=== PATIENT | female | born 1955 | race Caucasian/White ===

== ENCOUNTER 2016-12-28 11:28 | Emergency (ER) | payer OTHER ==
[2016-12-28] MEDS ORDERED: LIDOCAINE 1% INJ-PF (10 MG/ML) 30 ML SDV INFIL ONE (12:04)
[2016-12-28] MEDS ORDERED: HYDROCODONE/ACETAMINOPHEN 5-325 MG TABLET PO ONE (12:18)
--- NOTE | 2016-12-28 12:50 | ER Document Report ---
ED General - General Chief Complaint: Wrist Injury Stated Complaint: FALL/RIGHT WRIST INJURY Time Seen by Provider: 12/28/16 11:53 Mode of Arrival: Ambulatory Information source: Patient Notes: 61-year-old female presents with a distal radial fracture. Patient notes she fell on outstretched arm was sent to an urgent care where a distal radial fracture was noted. I received images from the urgent care and noted that there was mild displacement with a comminuted fracture. Sent in for reevaluation TRAVEL OUTSIDE OF THE [place] IN LAST 30 DAYS: No - HPI Onset: Just prior to arrival Onset/Duration: Sudden Quality of pain: Sharp Severity: Severe Pain Level: 5 Associated symptoms: Body/muscle aches Exacerbated by: Movement Relieved by: Denies Similar symptoms previously: Yes Recently seen / treated by doctor: Yes - Related Data Allergies/Adverse Reactions: No Known Allergies Allergy (Verified 12/28/16 11:31) Past Medical History - Social History Smoking Status: Current Every Day Smoker Cigarette use (# per day): Yes Chew tobacco use (# tins/day): No Smoking Education Provided: No Family History: Reviewed & Not Pertinent Patient has suicidal ideation: No Patient has homicidal ideation: No - Past Medical History Cardiac Medical History: Reports: Hx Hypertension Denies: Hx Coronary Artery Disease, Hx Heart Attack Pulmonary Medical History: Reports: Hx COPD Denies: Hx Asthma, Hx Bronchitis, Hx Pneumonia Neurological Medical History: Denies: Hx Cerebrovascular Accident, Hx Seizures Renal/ Medical History: Denies: Hx Peritoneal Dialysis GI Medical History: Reports: Hx Gastroesophageal Reflux Disease Musculoskeltal Medical History: Reports Hx Arthritis - B/L HIPS Past Surgical History: Reports: Hx Abdominal Surgery - Gastric sleeve, Hx Appendectomy, Hx Tonsillectomy - Immunizations Hx Diphtheria, Pertussis, Tetanus Vaccination: Yes Review of Systems - Review of Systems Notes: REVIEW OF SYSTEMS: CONSTITUTIONAL : Denies fever, chills, or sweats. Denies recent illness. EENT: Denies eye, ear, throat, or mouth pain or symptoms. Denies nasal or sinus congestion or discharge. Denies throat, tongue, or mouth swelling or difficulty swallowing. CARDIOVASCULAR: Denies chest pain. Denies palpitations or racing or irregular heart beat. Denies ankle edema. RESPIRATORY: Denies cough, cold, or chest congestion. Denies shortness of breath, difficulty breathing, or wheezing. GASTROINTESTINAL: Denies abdominal pain or distention. Denies nausea, vomiting , or diarrhea. Denies blood in vomitus, stools, or per rectum. Denies black, tarry stools. Denies constipation. GENITOURINARY: Denies difficulty urinating, painful urination, burning, frequency, blood in urine, or discharge. FEMALE GENITOURINARY: Denies vaginal bleeding, heavy or abnormal periods, irregular periods. Denies vaginal discharge or odor. MUSCULOSKELETAL: Admits to right wrist pain SKIN: Denies rash, lesions or sores. HEMATOLOGIC : Denies easy bruising or bleeding. LYMPHATIC: Denies swollen, enlarged glands. NEUROLOGICAL: Denies confusion or altered mental status. Denies passing out or loss of consciousness. Denies dizziness or lightheadedness. Denies headache. Denies weakness or paralysis or loss of use of either side. Denies problems with gait or speech. Denies sensory loss, numbness, or tingling. Denies seizures. PSYCHIATRIC: Denies anxiety or stress. Denies depression, suicidal ideation, or homicidal ideation. PHYSICAL EXAMINATION: GENERAL: Well-appearing, well-nourished and in no acute distress. HEAD: Atraumatic, normocephalic. EYES: Pupils equal round and reactive to light, extraocular movements intact, conjunctiva are normal. ENT: Nares patent, oropharynx clear without exudates. Moist mucous membranes. NECK: Normal range of motion, supple without lymphadenopathy LUNGS: Breath sounds clear to auscultation bilaterally and equal. No wheezes rales or rhonchi. HEART: Regular rate and rhythm without murmurs ABDOMEN: Soft, nontender, nondistended abdomen. No guarding, no rebound. No masses appreciated. Female : deferred Musculoskeletal: There is deformity of the right wrist with tenderness limited range of motion secondary to pain NEUROLOGICAL: Cranial nerves grossly intact. Normal speech, normal gait. Normal sensory, motor exams PSYCH: Normal mood, normal affect. SKIN: Warm, Dry, normal turgor, no rashes or lesions noted. ALL OTHER SYSTEMS REVIEWED AND NEGATIVE. Dictation was performed using [employer] recognition software Physical Exam - Vital signs Vitals: Temp Pulse Resp BP Pulse Ox 97.5 F 62 20 146/66 H 100 12/28/16 11:31 12/28/16 11:31 12/28/16 11:31 12/28/16 11:31 12/28/16 11:31 Course - Re-evaluation Re-evalutation: 12/28/16 16:01 A hematoma block was performed of the wrist using 10 cc of lidocaine with complete resolution of pain ring was removed from finger. Patient fracture was slightly reduced, patient placed in splint and will be given follow-up with orthopedics After performing a Medical Screening Examination, I estimate there is LOW risk for INTRACRANIAL HEMORRHAGE, UNSTABLE SPINE FRACTURE, CENTRAL CORD SYNDROME, CAUDA EQUINA, THORACIC AORTIC DISSECTION, PNEUMOTHORAX, PERFORATED BOWEL, RUPTURED ABDOMINAL AORTIC ANEURYSM, ACUTE TENDON RUPTURE, COMPARTMENT SYNDROME, or OPEN FRACTURE, thus I consider the discharge disposition reasonable. Also, there is no evidence or peritonitis, sepsis, or toxicity. I have reevaluated this patient multiple times and no significant life threatening changes are noted. The patient and I have discussed the diagnosis and risks, and we agree with discharging home to follow-up with their primary doctor with the understanding that symptoms and presentations can change. We also discussed returning to the Emergency Department immediately if new or worsening symptoms occur. We have discussed the symptoms which are most concerning (e.g., bloody stool, fever, changing or worsening pain, vomiting) that necessitate immediate return. - Vital Signs Vital signs: Temp Pulse Resp BP Pulse Ox 98.1 F 57 L 16 148/71 H 98 12/28/16 13:23 12/28/16 13:23 12/28/16 13:23 12/28/16 13:23 12/28/16 13:23 - Diagnostic Test Radiology reviewed: Image reviewed, Reports reviewed - communited fracture radius Procedures - Immobilization Right Wrist Time completed: 12:00 Pre-Proc Neuro Vasc Exam: Normal Immobilizer type: Volar splint Performed by: Provider assisted, PCT Post-Proc Neuro Vasc Exam: Normal Alignment checked and good: Yes - Joint Reduction/Fracture Care Right Wrist Time completed: 12:00 Consent obtained: Yes Conscious sedation: Yes Pre-procedure NV exam: Yes Fracture: Closed Post-procedure NV exam: Yes Post-reduction x-ray: Joint reduced Reduction attempts: 1 Complications: No - Additional Procedures hematoma block Time performed: 12:00 - using 10 cc of lido without epi no complication fullreleif Discharge - Discharge Clinical Impression: Radial head fracture, closed Qualifiers: Encounter type: initial encounter Fracture alignment: displaced Laterality: right Qualified Code(s): S52.121A - Displaced fracture of head of right radius, initial encounter for closed fracture Condition: Stable Disposition: HOME, SELF-CARE Instructions: Radial Head Fracture ([facility]) Prescriptions: Oxycodone HCl/Acetaminophen [Percocet 5-325 mg Tablet] 1 - 2 tab PO Q4H PRN #25 tablet PRN Reason: Referrals: WILMA KHAN DO [ACTIVE STAFF] - Follow up in 3-5 days
--- NOTE | 2016-12-28 13:18 | RADIOLOGY REPORT (SQ) ---
EXAM DESCRIPTION: WRIST RIGHT 3 VIEWS COMPLETED DATE/TIME: 12/28/2016 1:08 pm REASON FOR STUDY: post reduction COMPARISON: None. NUMBER OF VIEWS: Three views. TECHNIQUE: AP, lateral, and oblique radiographic images acquired of the right wrist. LIMITATIONS: None. FINDINGS: MINERALIZATION: Normal. BONES: Comminuted impacted fracture of the distal radius. SOFT TISSUES: No soft tissue swelling. No foreign body. OTHER: No other significant finding. IMPRESSION: COMMINUTED IMPACTED FRACTURE OF THE DISTAL RADIUS. TECHNICAL DOCUMENTATION: JOB ID: [id number] [employer]- All Rights Reserved
[2016-12-28 13:26] VITALS: BP 148/71
== END 2016-12-28 13:28 | disposition home or self-care (01) ==
LOC: ER 11:28
PROC: 0PSHXZZ Reposition Right Radius, External Approach (ICD-10-PCS; principal; 2016-12-28)
DX: S52.121A Displaced fracture of head of right radius, initial encounter for closed fracture (principal); M79.1 Myalgia; W19.XXXA Unspecified fall, initial encounter; F17.210 Nicotine dependence, cigarettes, uncomplicated; I10 Essential (primary) hypertension
CPT/HCPCS: 99283; 73110; 24655; J3490

== ENCOUNTER 2017-01-07 11:34 | Day surgery (SDC) | payer OTHER ==
[2017-01-05 12:11] LABS: ABSOLUTE BASOPHILS # (AUTO) 0.1 10^3/uL (0.0-0.2); ABSOLUTE EOSINOPHILS # (AUTO) 0.2 10^3/uL (0.0-0.6); ABSOLUTE LYMPHOCYTES (AUTO) 2.2 10^3/uL (0.5-4.7); ABSOLUTE MONOCYTES (AUTO) 0.7 10^3/uL (0.1-1.4); ABSOLUTE NEUT (AUTO) 5.8 10^3/uL (1.7-8.2); BASOPHILS % (AUTO) 0.8 % (0-2); EOSINOPHILS % (AUTO) 1.8 % (0-6); HEMATOCRIT 39.7 % (36.0-47.0); HEMOGLOBIN 12.7 g/dL (12.0-15.5); HGB HCT DIFFERENCE -1.6; LYMPHOCYTES % (AUTO) 24.9 % (13-45); MEAN CORPUSCULAR HEMOGLOBIN 28.7 pg (27.0-33.4); MEAN CORPUSCULAR HGB CONC 32.1 g/dL (32.0-36.0); MEAN CORPUSCULAR VOLUME 90 fl (80-97); RED BLOOD COUNT 4.43 10^6/uL (3.72-5.28); RED CELL DISTRIBUTION WIDTH 14.7 % (11.5-14.0); SEGMENTED NEUTROPHILS % (AUTO) 64.5 % (42-78)
[2017-01-05 12:31] LABS: ANION GAP 11 (5-19); BLOOD UREA NITROGEN 10 mg/dL (7-20); CALCIUM 9.1 mg/dL (8.4-10.2); CARBON DIOXIDE 24 mmol/L (22-30); CHLORIDE 106 mmol/L (98-107); GLUCOSE 78 mg/dL (75-110); POTASSIUM 4.2 mmol/L (3.6-5.0)
[2017-01-05 12:41] LABS: APPEARANCE,URINE SLIGHTLY-CLOUDY; BILIRUBIN,URINE NEGATIVE (NEGATIVE); GLUCOSE, URINE NEGATIVE (NEGATIVE); KETONES,URINE TRACE mg/dL (NEGATIVE); LEUKOCYTE ESTERASE,URINE NEGATIVE (NEGATIVE); NITRITE,URINE NEGATIVE (NEGATIVE); PROTEIN,URINE NEGATIVE (NEGATIVE); URIC ACID CRYSTALS,URINE MODERATE /HPF; URINE SPECIFIC GRAVITY 1.024; UROBILINOGEN,URINE NEGATIVE mg/dL (<2.0)
--- NOTE | 2017-01-05 13:14 | RADIOLOGY REPORT (SQ) ---
EXAM DESCRIPTION: CHEST PA/LATERAL COMPLETED DATE/TIME: 01/05/2017 11:44 am REASON FOR STUDY: PRE OP COMPARISON: 03/30/2015 EXAM PARAMETERS: NUMBER OF VIEWS: two views TECHNIQUE: Digital Frontal and Lateral radiographic views of the chest acquired. RADIATION DOSE: NA LIMITATIONS: none FINDINGS: LUNGS AND PLEURA: No opacities, masses or pneumothorax. No pleural effusion. MEDIASTINUM AND HILAR STRUCTURES: No masses or contour abnormalities. HEART AND VASCULAR STRUCTURES: Heart normal size. No evidence for failure. BONES: No acute findings. HARDWARE: None in the chest. OTHER: No other significant finding. IMPRESSION: NO SIGNIFICANT RADIOGRAPHIC FINDING IN THE CHEST. TECHNICAL DOCUMENTATION: JOB ID: [id number] [employer]- All Rights Reserved
--- NOTE | 2017-01-05 17:04 | EKG REPORT ---
SEVERITY:- NORMAL ECG - SINUS RHYTHM : Confirmed by: Chhaya Hlolis MD 05-Jan-2017 17:03:14
[~2017-01-07 11:34] MED LIST: LACTATED RINGERS 1000 ML IV PRN; LIDOCAINE 0.5% INJ-PF (5 MG/ML) 50 ML SDV SUBCUT PRN
[2017-01-07] MEDS ORDERED: CEFAZOLIN 2 GM/D5W RTU 2 GM/50 ML RTUPB IV ONE (11:42)
[2017-01-07] MEDS ORDERED: ONDANSETRON HCL INJ/PF 4 MG/2 ML SDV ONE (11:49)
[2017-01-07] MEDS ORDERED: GLYCOPYRROLATE INJ 0.4 MG/2 ML VIAL ONE (11:49)
[2017-01-07] MEDS ORDERED: DEXAMETHASONE SOD PHOSPHATE INJ 4 MG/1 ML VIAL ONE (11:49)
[2017-01-07] MEDS ORDERED: BUPIVACAINE HCL 0.5 % INJ/PF 30 ML SDV ONE (11:49)
[2017-01-07] MEDS ORDERED: METOCLOPRAMIDE HCL INJ/PF 10 MG/2 ML SDV ONE (11:49)
[2017-01-07] MEDS ORDERED: LIDOCAINE 2% INJ-PF (20 MG/ML) 10 ML AMPUL ONE (11:49)
[2017-01-07] MEDS ORDERED: ALBUTEROL SULFATE 0.083% NEB 2.5 MG/3 ML AMPUL NEB ONE (12:06)
[2017-01-07] MEDS ORDERED: FENTANYL CITRATE INJ/PF 250 MCG/5 ML AMPULE ONE (12:27)
[2017-01-07] MEDS ORDERED: MIDAZOLAM 2 MG/2 ML INJ ONE (12:27)
[2017-01-07] MEDS ORDERED: IBUPROFEN INJ 800 MG/8 ML VIAL IV ONE (12:28)
[2017-01-07] MEDS ORDERED: MORPHINE SULFATE 10 MG/ML INJ ONE (12:28)
[2017-01-07] MEDS ORDERED: PROPOFOL INJ 200 MG/20 ML VIAL IV ONE (12:28)
[2017-01-07] MEDS ORDERED: OXYCODONE-ACETAMINOPHEN 5-325 MG TABLET PO PRN ×3 (13:45→15:00)
[2017-01-07] MEDS ORDERED: DIPHENHYDRAMINE HCL 50 MG/ML VIAL IV PRN (13:45)
[2017-01-07] MEDS ORDERED: PROMETHAZINE HCL INJ 25 MG/1 ML VIAL IV PRN ×2 (13:45)
[2017-01-07] MEDS ORDERED: MORPHINE SULFATE 10 MG/ML INJ IV PRN (13:45)
[2017-01-07] MEDS ORDERED: FENTANYL CITRATE INJ/PF 100 MCG/2 ML AMPUL IV PRN ×3 (13:45)
[2017-01-07] MEDS ORDERED: MEPERIDINE HCL/PF INJ 25 MG/1 ML DISP.SYRIN IV PRN (13:45)
[2017-01-07] MEDS ORDERED: HYDROMORPHONE HCL INJ/PF 2 MG/ML AMPULE IV PRN (15:00)
[2017-01-07] MEDS ORDERED: ONDANSETRON HCL INJ/PF 4 MG/2 ML SDV IV PRN (15:00)
--- NOTE | 2017-01-07 15:03 | PDOC DISCHARGE SUMMARY ---
Discharge Summary (SDC) - Discharge Final Diagnosis: Right distal radius fracture Date of Surgery: 01/07/17 Discharge Date: 01/07/17 Condition: Good Treatment or Instructions: Schedule Follow Up w/ Dr. Luke Clemens @ [facility] for Surgery to be seen in 10-14 days or as scheduled [place]: [place]: [place]: Keep splint clean/dry/intact. Ice and elevate May begin finger range of motion attempting to make full fist. Stool softener of choice when on pain medication. Prescriptions: Oxycodone HCl/Acetaminophen [Percocet 5-325 mg Tablet] 1 - 2 tab PO ASDIR PRN # 50 tablet PRN Reason: Discharge Diet: As Tolerated Respiratory Treatments at Home: Deep Breathing/Coughing, Incentive Spirometer Discharge Activity: No Lifting Over 10 Pounds, No Lifting/Push/Pulling Report the Following to Your Physician Immediately: Fever over 101 Degrees, Unusual Bleeding, Redness, Swelling, Warmth, Increased Soreness, Drainage-Foul Smelling, Numbness, Tingling Sensation
--- NOTE | 2017-01-07 15:05 | RADIOLOGY REPORT (SQ) ---
EXAM DESCRIPTION: NO CHG FLUORO COMPLETE DATE/TIME: 01/07/2017 2:56 pm REASON FOR STUDY: ORIF RIGHT DISTAL RADIUS S52.501A UNSP FRACTURE OF THE LOWER END OF RIGHT RADIUS, INI FINDINGS: Please see combined report for performance of procedure and radiologic supervision and int erpretation. IMPRESSION: Please see combined report for performance of procedure and radiologic supervision and i nterpretation.
--- NOTE | 2017-01-07 15:05 | RADIOLOGY REPORT (SQ) ---
EXAM DESCRIPTION: WRIST RIGHT 2 VIEWS COMPLETED DATE/TIME: 01/07/2017 2:56 pm REASON FOR STUDY: ORIF RIGHT DISTAL RADIUS S52.501A UNSP FRACTURE OF THE LOWER END OF RIGHT RADIUS, INI COMPARISON: 12/28/2016 FLUOROSCOPY TIME: 1 minutes 29 seconds 23 images saved to PACS. TECHNIQUE: Intra-operative images acquired during surgical procedure to evaluate progress. NUMBER OF IMAGES: 23 imaged LIMITATIONS: None. FINDINGS: Fluoroscopic images were obtained during internal fixation of the previously described com minuted fracture of the distal radius. Orthopedic hardware is identified. IMPRESSION: IMAGE(S) OBTAINED DURING PROCEDURE. COMMENT: Quality ID [id number]: Final reports for procedures using fluoroscopy that document radiation exp osure indices, or exposure time and number of fluorographic images (if radiation exposure indices are not available) Please consult full operative report of the attending physician for description of the procedure. TECHNICAL DOCUMENTATION: JOB ID: [id number] [employer]- All Rights Reserved
--- NOTE | 2017-01-07 15:14 | Operative Report ---
Operative Report DATE OF SURGERY: 01/07/17 PREOPERATIVE DIAGNOSIS: Right distal radius fracture POSTOPERATIVE DIAGNOSIS: > 3 part intra-articular distal radius fracture. Status post laceration left wrist with chronic scar. Median nerve adhesions OPERATION: 1. Open reduction internal fixation > three-part intra-articular distal radius fracture. 2. Median nerve neuro lysis. 3. Revision scar ANESTHESIA: GA COMPLICATIONS: None ESTIMATED BLOOD LOSS: Minimal PROCEDURE: Indication for above procedure: Pleasant 51-year-old female who sustained a fall onto her outstretched right wrist. She was seen at the emergency room where x-rays demonstrated comminuted intra-articular distal radius fracture. She subsequently followed up with displacement my office which will be discussed treatment options given the intra -articular nature of the patient's fracture the joint decision was made to proceed with operative intervention. Risks and benefits were explained the patient including significant risk given patient's previous wrist injury. Patient verbalized understanding of these risks and consented for the procedure. Procedure In Detail: Patient was seen and evaluated in the preoperative holding area. The RIGHT upper extremity was initialized and marked. Patient received 2g of Ancef IV for bacterial prophylaxis. Patient was taken back to the operative room where transferred to the operative table and placed under general anesthesia. Once they were adequately anesthetized and a nonsterile tourniquet was placed on his upper extremity. A surgical team debriefing was performed ensuring all instrumentation was available, the surgical procedure was discussed with possible concerns reviewed. The upper extremity was prepped with chlorhexidine and alcohol and draped in a sterile fashion. A timeout was done identifying correct patient, procedure and extremity everyone in attendance agree with this and verbalized no concerns.The extremity was exsanguinated the tourniquet was inflated to 250 mmHg. A longitudinal skin incision was made via patient's previous surgical incision which was slightly ulnar to the standard volar Panda approach but given the possible skin bridge I felt it was necessary to proceed with usage of this previous incision. The previous scar was excised. Blunt dissection was performed through the soft tissues and the palmar cutaneous branch of the median nerve was identified. Identified the median nerve there was significant adhesions along the median nerve proximally and distally at a level just proximal to the wrist crease. Neuro lysis was performed proximally and distally until the median nerve was free of any remaining scar. I then proceeded with standard Panda approach by identifying the FCR tendon sheath was opened and retracted in a ulnar direction. FPL was then carefully swept from the lower aspect of the pronator quadratus. The pronator quadratus was incised and elevated with underlying periosteum to allow for radial repair. The fracture was then identified. With a [place] elevator the fracture fragments including the ulnar lunate and radial styloid were disengaged and then anatomically reduced along the cortical surface under direct visualization. A 0.45 K wire was then utilized maintaining reduction of the fragment. I then proceeded with placement of the plate. A standard volar Acumed 3 hole plate was pinned into position. C-arm fluoroscopy was obtained confirming appropriate placement. Given the nature of the fracture and reduction I proceeded with fixation of the plate proximally on the oblong hole with a bicortical 3.5 millimeter screw. I then readjusted the plate appropriately to cover the volar cortex and provide buttress effect to the volar ulnar corner. This was confirmed on C-arm fluoroscopy AP and lateral projections demonstrate appropriate height of the plate and position. The distal screw holes were then drilled drilling to but not through the far cortex the appropriate sized locking screws were placed. I then ensured no encroachment of the articular surface on 20 lateral and regular lateral views. I then completed fixation distally with my 2 radial styloid screws. Fixation was continued and completed proximally with 2 additional bicortical 3.5 millimeter screws. Given the nature and instability of the volar ulnar corner fragment utilizing a 0.045 K wire I drilled into K wire holes in the plate being 0.45 K wire was measured and appropriately cut and then placed into the 2 adjacent holes acting as a pin plate type fixation. Final C arm fluoroscopy was then obtained which demonstrated methodist of the articular surface, volar tilt, radial inclination and height. The wound was then irrigated with normal saline. The wound was copiously irrigated with normal saline. There was no evidence of DRUJ instability on examination, Negative Marshall's test, No crepitus with range of motion at the radiocarpal joint or DRUJ. I then closed the pronator quadratus with interrupted 3-0 Vicryl suture is able to provide coverage over my K wire. Subcutaneous tissues were closed with running 3-0 nylon suture. The skin was closed with a running subcuticular 4-0 Monocryl suture which was reinforced with Dermabond and Steri-Strips. 20 mL of 0.5% Marcaine were injected for postoperative pain control. The tourniquet was then deflated. Was dressed with sterile 4 x 4's and patient was placed in a well-padded volar splint with bias wrap. Sponge counts, instrument counts and needle counts were correct. There was no intraoperative complications patient tolerated procedure well stable to PACU. Postoperative plan: Patient will be switched to a removal brace at her first postoperative followup visit and begin range of motion. Patient is encouraged to start vitamin C 500 mg daily for 51 days. Will obtain radiographs at followup of the wrist.
[2017-01-07 17:25] VITALS: BP 130/64
== END 2017-01-07 17:40 | disposition home or self-care (01) ==
LOC: OROUT 11:34
PROVIDERS: ATTEND Orthopaedic Surgery
PROC: 0PSH04Z Reposition Right Radius with Internal Fixation Device, Open Approach (ICD-10-PCS; principal; 2017-01-07 12:30)
DX: S52.501A Unspecified fracture of the lower end of right radius, initial encounter for closed fracture (principal); W19.XXXA Unspecified fall, initial encounter; M25.531 Pain in right wrist; F17.210 Nicotine dependence, cigarettes, uncomplicated; I10 Essential (primary) hypertension; K21.9 Gastro-esophageal reflux disease without esophagitis; F41.9 Anxiety disorder, unspecified; Z79.899 Other long term (current) drug therapy
CPT/HCPCS: 93005; 36415; 85025; 80048; 81001; 71020; 73100; 93010; 25609; C1713 ×3; C1769; J2250; J1100; J3010; J2765; J2270; J2405; J2704; J3490; J0690; J1741; 01830

== ENCOUNTER 2017-01-28 16:26 | Emergency (ER) | payer OTHER ==
--- NOTE | 2017-01-28 17:06 | ER Document Report ---
ED Medical Screen (RME) - General Chief Complaint: Leg Pain Stated Complaint: POSSIBLE BLOOD CLOT Time Seen by Provider: 01/28/17 17:03 Mode of Arrival: Wheelchair Information source: Patient TRAVEL OUTSIDE OF THE [place] IN LAST 30 DAYS: No - HPI Patient complains to provider of: L leg pain and swelling with erythema Onset: Other - pt with recent orthopedic surgery per Dr. Isaac (plate in R FA ) with pain, sewlling, and erythema to L upper leg over the past 2-3 days. Seen in office today and setn here for evaluation of possible DVT - Related Data Allergies/Adverse Reactions: No Known Allergies Allergy (Verified 01/05/17 09:58) Past Medical History - Past Medical History Cardiac Medical History: Reports: Hx Hypertension Denies: Hx Coronary Artery Disease, Hx Heart Attack Pulmonary Medical History: Denies: Hx Asthma, Hx Bronchitis, Hx COPD, Hx Pneumonia Neurological Medical History: Denies: Hx Cerebrovascular Accident, Hx Seizures Renal/ Medical History: Denies: Hx Peritoneal Dialysis GI Medical History: Reports: Hx Gastroesophageal Reflux Disease Musculoskeltal Medical History: Denies Hx Arthritis Past Surgical History: Reports: Hx Abdominal Surgery - Gastric sleeve, Hx Appendectomy, Hx Tonsillectomy - Immunizations Hx Diphtheria, Pertussis, Tetanus Vaccination: Yes - UNSURE WHEN Physical Exam - Vital signs Vitals: Temp Pulse Resp BP Pulse Ox 98.8 F 87 16 135/76 H 98 01/28/17 16:52 01/28/17 16:52 01/28/17 16:52 01/28/17 16:52 01/28/17 16:52 Course - Vital Signs Vital signs: Temp Pulse Resp BP Pulse Ox 98.8 F 87 16 135/76 H 98 01/28/17 16:52 01/28/17 16:52 01/28/17 16:52 01/28/17 16:52 01/28/17 16:52
[2017-01-28 17:30] LABS: ABSOLUTE BASOPHILS # (AUTO) 0.1 10^3/uL (0.0-0.2); ABSOLUTE EOSINOPHILS # (AUTO) 0.1 10^3/uL (0.0-0.6); ABSOLUTE LYMPHOCYTES (AUTO) 2.5 10^3/uL (0.5-4.7); ABSOLUTE MONOCYTES (AUTO) 1.1 10^3/uL (0.1-1.4); ABSOLUTE NEUT (AUTO) 6.5 10^3/uL (1.7-8.2); BASOPHILS % (AUTO) 0.7 % (0-2); EOSINOPHILS % (AUTO) 1.2 % (0-6); HEMATOCRIT 37.8 % (36.0-47.0); HEMOGLOBIN 12.2 g/dL (12.0-15.5); HGB HCT DIFFERENCE -1.2; LYMPHOCYTES % (AUTO) 24.5 % (13-45); MEAN CORPUSCULAR HEMOGLOBIN 28.1 pg (27.0-33.4); MEAN CORPUSCULAR HGB CONC 32.2 g/dL (32.0-36.0); MEAN CORPUSCULAR VOLUME 87 fl (80-97); MONOCYTES % (AUTO) 10.5 % (3-13); RED BLOOD COUNT 4.34 10^6/uL (3.72-5.28); RED CELL DISTRIBUTION WIDTH 15.4 % (11.5-14.0); SEGMENTED NEUTROPHILS % (AUTO) 63.1 % (42-78); WHITE BLOOD COUNT 10.3 10^3/uL (4.0-10.5)
[2017-01-28 17:53] LABS: ALANINE AMINOTRANSFERASE 21 U/L (9-52); ALBUMIN 3.7 g/dL (3.5-5.0); ALKALINE PHOSPHATASE 106 U/L (38-126); ANION GAP 9 (5-19); ASPARTATE AMINO TRANSFERASE 21 U/L (14-36); BILIRUBIN,DIRECT 0.4 mg/dL (0.0-0.4); BILIRUBIN,TOTAL 0.8 mg/dL (0.2-1.3); BLOOD UREA NITROGEN 10 mg/dL (7-20); CALCIUM 9.2 mg/dL (8.4-10.2); CARBON DIOXIDE 23 mmol/L (22-30); CHLORIDE 106 mmol/L (98-107); CREATININE RESULT 0.65 mg/dL (0.52-1.25); GLUCOSE 90 mg/dL (75-110); POTASSIUM 4.2 mmol/L (3.6-5.0); SODIUM 137.9 mmol/L (137-145); TOTAL PROTEIN 6.4 g/dL (6.3-8.2)
--- NOTE | 2017-01-28 18:36 | ER Document Report ---
ED Extremity Problem, Lower - General Mode of Arrival: Wheelchair TRAVEL OUTSIDE OF THE [place] IN LAST 30 DAYS: No <ASA HERNANDEZ - Last Filed: 01/28/17 19:48> <LORENZO ESPINOSA - Last Filed: 01/28/17 20:20> - General Chief Complaint: Leg Pain Stated Complaint: LEG PAIN Time Seen by Provider: 01/28/17 17:03 Notes: Patient is a 61 year old female who presents to the ED with complaints of left leg swelling and redness with onset 1 week ago. Patient states it started in her lower leg behind her knee and has moved up into her groin area. Patient denies any fever. Patient had a DVT several years ago and recently had orthopedic surgery on her right arm. No other concerns or complaints at this time. (ASA HERNANDEZ) - Related Data Allergies/Adverse Reactions: No Known Allergies Allergy (Verified 01/05/17 09:58) Past Medical History - General Information source: Patient - Social History Smoking Status: Current Every Day Smoker Chew tobacco use (# tins/day): No Frequency of alcohol use: Occasional Drug Abuse: None Family History: Reviewed & Not Pertinent Patient has suicidal ideation: No Patient has homicidal ideation: No - Past Medical History Cardiac Medical History: Reports: Hx Hypertension Denies: Hx Coronary Artery Disease, Hx Heart Attack Pulmonary Medical History: Denies: Hx Asthma, Hx Bronchitis, Hx COPD, Hx Pneumonia Neurological Medical History: Denies: Hx Cerebrovascular Accident, Hx Seizures Renal/ Medical History: Denies: Hx Peritoneal Dialysis GI Medical History: Reports: Hx Gastroesophageal Reflux Disease Musculoskeltal Medical History: Denies Hx Arthritis Past Surgical History: Reports: Hx Abdominal Surgery - Gastric sleeve, Hx Appendectomy, Hx Orthopedic Surgery, Hx Tonsillectomy - Immunizations Hx Diphtheria, Pertussis, Tetanus Vaccination: Yes - UNSURE WHEN <ASA HERNANDEZ - Last Filed: 01/28/17 19:48> Review of Systems - Review of Systems Constitutional: No symptoms reported. denies: Fever EENT: No symptoms reported Cardiovascular: No symptoms reported Respiratory: No symptoms reported Gastrointestinal: No symptoms reported Genitourinary: No symptoms reported Female Genitourinary: No symptoms reported Musculoskeletal: See HPI, Other - swelling and redness to left leg Skin: No symptoms reported Hematologic/Lymphatic: No symptoms reported Neurological/Psychological: No symptoms reported <ASA HERNANDEZ - Last Filed: 01/28/17 19:48> Physical Exam <ASA HERNANDEZ - Last Filed: 01/28/17 19:48> <LORENZO ESPINOSA - Last Filed: 01/28/17 20:20> - Vital signs Vitals: Temp Pulse Resp BP Pulse Ox 98.8 F 87 16 135/76 H 98 01/28/17 16:52 01/28/17 16:52 01/28/17 16:52 01/28/17 16:52 01/28/17 16:52 - Notes Notes: GENERAL: Alert, interacts well. No acute distress. HEAD: Normocephalic, atraumatic. EYES: Pupils equal, round, and reactive to light. Extraocular movements intact. ENT: Oral mucosa moist, tongue midline. NECK: Full range of motion. Supple. Trachea midline. LUNGS: Clear to auscultation bilaterally, no wheezes, rales, or rhonchi. No respiratory distress. HEART: Regular rate and rhythm. No murmurs, gallops, or rubs. EXTREMITIES: Moves all 4 extremities spontaneously. No edema, radial and dorsalis pedis pulses 2/4 bilaterally. No cyanosis. No swelling to lower left leg. Medial aspect of left thigh has swelling and erythema starting at knee streaking up into the groin, no fluctuance, tender to palpation. Cording of superficial vein medially at the level of the left knee. NEUROLOGICAL: Alert and oriented x3. Normal speech. PSYCH: Normal affect, normal mood. (ASA HERNANDEZ) Course - Laboratory Result Diagrams: 01/28/17 17:05 01/28/17 17:05 <ASA HERNANDEZ - Last Filed: 01/28/17 19:48> - Laboratory Result Diagrams: 01/28/17 17:05 01/28/17 17:05 <LORENZO ESPINOSA - Last Filed: 01/28/17 20:20> - Re-evaluation Re-evalutation: 01/28/17 20:20 CBC unremarkable, CMP unremarkable, venous Doppler study shows superficial phlebitis of the saphenous vein, it is very close to the saphenofemoral junction , discussed with Dr. Dwyer who recommends starting aspirin and repeating the ultrasound in 1 week. (LORENZO ESPINOSA) - Vital Signs Vital signs: Temp Pulse Resp BP Pulse Ox 98.8 F 74 14 152/72 H 97 01/28/17 16:52 01/28/17 19:24 01/28/17 19:24 01/28/17 19:24 01/28/17 19:24 - Laboratory Laboratory results interpreted by me: 01/28/17 17:05 RDW 15.4 H Discharge <ASA HERNANDEZ - Last Filed: 01/28/17 19:48> <LORENZO ESPINOSA - Last Filed: 01/28/17 20:20> - Discharge Clinical Impression: Superficial phlebitis of left leg Condition: Stable Disposition: HOME, SELF-CARE Additional Instructions: Please have the ultrasound of your left leg repeated in 1 week. This will make sure that the swelling has not turned into a DVT. Today there is no evidence of DVT. Please take a daily enteric-coated aspirin. Please take 325 mg every day until your ultrasound is completed again. Return for fevers, worsening pain or swelling. A heating pad or warm moist compress could help to decrease the pain. Forms: Follow-Up Outpatient Testing Scribe Attestation: 01/28/17 20:20 I personally performed the services described in the documentation, reviewed and edited the documentation which was dictated to the scribe in my presence, and it accurately records my words and actions. (LORENZO ESPINOSA) Scribe Documentation - Scribe Written by Sushila:: sushila Candelario, 01/28/2017, 1906 acting as scribe for :: Shawna <ASA HERNANDEZ - Last Filed: 01/28/17 19:48>
[2017-01-28 19:25] VITALS: BP 152/72
--- NOTE | 2017-01-30 12:47 | XCELERA REPORT ---
[address] [address] Lower Extremity Venous Evaluation Name: SALINA MCCURDY Age: 61 yrs Gender: Female : 1955 Patient Status: Emergency Patient Location: ER Study Date: 01/28/2017 05:35 PM Procedure: Color flow and duplex imaging of the veins of the left lower extremity as well as the right Common Femoral vein. Reason For Study: L leg pain, swelling, erythema Ordering Physician: JLUIS MERRITT Performed By: Elsa Mejia Right Sided Venous Evaluation The right common femoral vein is fully compressible. Spontaneous and phasic flow is present in the right common femoral vein. Left Sided Venous Evaluation Abnormal vessel filling , lack of compression and Colour flow, enlarged Greater Saphenous vein, from knee, almost to the Sapheno Femoral junction. Otherwise normal deep and superficial veins down to the infrageniculate veins. Critical Findings Discussed with Dr Matos. Recommend repeat study to evaluate for possible future extension. Daily Aspirin, risk reduction may be beneficial. Interpretation Summary No duplex evidence of DVT or obstruction in the left lower extremity nor in the right Common Femoral vein. Extensive Superficial phlebitis almost to the Sapheno Femoral junction. On the left side. : JLUIS MERRITT > Neville Dwyer
== END 2017-01-28 19:26 | disposition home or self-care (01) ==
LOC: ER 16:26
DX: I80.02 Phlebitis and thrombophlebitis of superficial vessels of left lower extremity (principal); M79.605 Pain in left leg; F17.200 Nicotine dependence, unspecified, uncomplicated; I10 Essential (primary) hypertension; Z86.718 Personal history of other venous thrombosis and embolism
CPT/HCPCS: 36415; 80053; 85025; 93971; 99284

== ENCOUNTER 2017-04-08 10:47 | Day surgery (SDC) | payer OTHER ==
[2017-04-04 12:33] LABS: ABSOLUTE BASOPHILS # (AUTO) 0.1 10^3/uL (0.0-0.2); ABSOLUTE EOSINOPHILS # (AUTO) 0.2 10^3/uL (0.0-0.6); ABSOLUTE LYMPHOCYTES (AUTO) 2.6 10^3/uL (0.5-4.7); ABSOLUTE MONOCYTES (AUTO) 0.7 10^3/uL (0.1-1.4); ABSOLUTE NEUT (AUTO) 4.6 10^3/uL (1.7-8.2); BASOPHILS % (AUTO) 1.2 % (0-2); EOSINOPHILS % (AUTO) 2.1 % (0-6); HEMATOCRIT 39.2 % (36.0-47.0); HEMOGLOBIN 13.1 g/dL (12.0-15.5); HGB HCT DIFFERENCE 0.1; MEAN CORPUSCULAR HEMOGLOBIN 28.2 pg (27.0-33.4); MEAN CORPUSCULAR HGB CONC 33.5 g/dL (32.0-36.0); MEAN CORPUSCULAR VOLUME 84 fl (80-97); MONOCYTES % (AUTO) 8.4 % (3-13); RED BLOOD COUNT 4.66 10^6/uL (3.72-5.28); SEGMENTED NEUTROPHILS % (AUTO) 56.3 % (42-78); WHITE BLOOD COUNT 8.2 10^3/uL (4.0-10.5)
[2017-04-04 12:43] LABS: APPEARANCE,URINE SLIGHTLY-CLOUDY; BILIRUBIN,URINE NEGATIVE (NEGATIVE); GLUCOSE, URINE NEGATIVE (NEGATIVE); KETONES,URINE NEGATIVE (NEGATIVE); LEUKOCYTE ESTERASE,URINE NEGATIVE (NEGATIVE); NITRITE,URINE NEGATIVE (NEGATIVE); PROTEIN,URINE NEGATIVE (NEGATIVE); URINE SPECIFIC GRAVITY 1.014; UROBILINOGEN,URINE NEGATIVE mg/dL (<2.0)
[2017-04-04 13:04] LABS: ANION GAP 8 (5-19); BLOOD UREA NITROGEN 13 mg/dL (7-20); CARBON DIOXIDE 29 mmol/L (22-30); CHLORIDE 101 mmol/L (98-107); CREATININE RESULT 0.69 mg/dL (0.52-1.25); GLUCOSE 81 mg/dL (75-110); SODIUM 138.2 mmol/L (137-145)
[~2017-04-08 10:47] MED LIST changes: +BUPIVACAINE HCL 0.5 % INJ/PF 30 ML SDV ONE; +CEFAZOLIN 2 GM/D5W RTU 2 GM/50 ML RTUPB IV PRN; +LIDOCAINE 1% INJ-PF (10 MG/ML) 30 ML SDV ONE
[2017-04-08] MEDS ORDERED: MIDAZOLAM 2 MG/2 ML INJ ONE (12:35)
[2017-04-08] MEDS ORDERED: KETAMINE HCL INJ 500 MG/10 ML VIAL ONE (12:35)
[2017-04-08] MEDS ORDERED: PROPOFOL INJ 200 MG/20 ML VIAL IV ONE ×2 (12:37→12:45)
[2017-04-08] MEDS ORDERED: FENTANYL CITRATE INJ/PF 100 MCG/2 ML AMPUL IV PRN ×3 (13:32)
[2017-04-08] MEDS ORDERED: DIPHENHYDRAMINE HCL 50 MG/ML VIAL IV PRN (13:32)
[2017-04-08] MEDS ORDERED: PROMETHAZINE HCL INJ 25 MG/1 ML VIAL IV PRN ×2 (13:32)
[2017-04-08] MEDS ORDERED: OXYCODONE-ACETAMINOPHEN 5-325 MG TABLET PO PRN ×3 (13:32→13:44)
[2017-04-08] MEDS ORDERED: MEPERIDINE HCL/PF INJ 25 MG/1 ML DISP.SYRIN IV PRN (13:32)
[2017-04-08] MEDS ORDERED: MORPHINE SULFATE 10 MG/ML INJ IV PRN ×2 (13:32→13:44)
[2017-04-08] MEDS ORDERED: ONDANSETRON HCL INJ/PF 4 MG/2 ML SDV IV PRN (13:44)
--- NOTE | 2017-04-08 13:44 | Operative Report ---
Operative Report DATE OF SURGERY: 04/08/17 PREOPERATIVE DIAGNOSIS: Retained Painful Hardware Right Wrist POSTOPERATIVE DIAGNOSIS: Same OPERATION: Removal Deep Hardware Right Wrist SURGEON: WILMA KHAN ANESTHESIA: LMAC COMPLICATIONS: NONE ESTIMATED BLOOD LOSS: Minimal PROCEDURE: Indication for above procedure: 61-year-old female who sustained a comminuted intra-articular right distal radius fracture. She underwent open reduction internal fixation and had good results. But given the fracture a K wire was placed maintaining reduction of the lunate fragment. Postoperatively the plan was to proceed with hardware removal. Now the pain is causing patient discomfort and thus the decision was made to proceed with hardware removal. Procedure In Detail: Patient was seen and evaluated in the preoperative holding area. The RIGHT upper extremity was initialized and marked. Patient received Ancef IV for bacterial prophylaxis. Patient was taken back to the operative room where transferred operative table. Patient was then placed under MAC anesthesia. Once adequately anesthetized, a nonsterile tourniquet was placed on the upper extremity. A surgical team debriefing was performed ensuring all instrumentation was available, the surgical procedure was discussed with possible concerns reviewed. Skin was prepped with alcohol a 50:50 10 mL mixture of 1% lidocaine and 0.5% Marcaine plain was injected locally at the distal aspect of the previous incision. The upper extremity was prepped with chlorhexidine and alcohol and draped in a sterile fashion. A timeout was done identifying correct patient, procedure and extremity everyone in attendance agree with this and verbalized no concerns.The extremity was then exsanguinated the tourniquet was inflated to 250 mmHg. The distal third skin incision for the previous ORIF distal radius was utilized. Blunt dissection was performed. The palmaris longus tendon was identified and retracted in a radial direction the interval between the palmaris longus and median nerve was established. The retained K wire was then successfully removed. No evidence of FDP/FPL tendon discontinuity or irritation along the volar surface of the distal radius plate. Thus I do not feel the plate required removal. Any peripheral vasculature was coagulated bipolar cautery. Skin incision was closed with a subcuticular 4-0 Monocryl reinforced with Dermabond and Steri-Strips and a soft dressing was placed. Sponge counts, instrument counts, needle counts counts were correct. Patient was then awoken from anesthesia. Transferred from the operating room table to the operating room stretcher. There was no intraoperative complications patient tolerated procedure well stable to PACU. Postoperative plan: Patient will follow-up the office in 2 weeks at which point we will proceed with wound check. Patient may begin full range of motion and strengthening activities as tolerated.
--- NOTE | 2017-04-08 13:44 | PDOC DISCHARGE SUMMARY ---
Discharge Summary (SDC) - Discharge Final Diagnosis: Retained Hardware Right Wrist Date of Surgery: 04/08/17 Discharge Date: 04/08/17 Condition: Good Treatment or Instructions: Schedule Follow Up w/ Dr. Luke Clemens @ [facility] to be seen in 10-14 days or as scheduled [place]: [place]: [place]: May remove dressing on postop day #3, keep incision covered and dry. Ice and elevate May begin finger range of motion attempting to make full fist. Stool softener of choice when on pain medication. Prescriptions: Hydrocodone/Acetaminophen [Pony 5-325 mg Tablet] 1 tab PO Q6 PRN #20 tablet PRN Reason: Discharge Diet: As Tolerated Respiratory Treatments at Home: Deep Breathing/Coughing Discharge Activity: Activity As Tolerated Report the Following to Your Physician Immediately: Unusual Bleeding, Redness, Swelling, Warmth, Increased Soreness
--- NOTE | 2017-04-08 15:37 | RADIOLOGY REPORT (SQ) ---
EXAM DESCRIPTION: WRIST RIGHT 2 VIEWS; NO CHG FLUORO COMPLETED DATE/TIME: 04/08/2017 3:27 pm REASON FOR STUDY: PIN REMOVAL RIGHT WRIST ASSISTED W/ FLUORO IN OR T84.398A [facility] COMPL OF OTH BONE DEVICES, IMPLANTS AND GRAFTS COMPARISON: 01/07/2017 FLUOROSCOPY TIME: 3 seconds 2 digital C-arm images saved to PACS. TECHNIQUE: Intra-operative images acquired during surgical procedure to evaluate progress. NUMBER OF IMAGES: 2 digital C-arm images LIMITATIONS: None. FINDINGS: Intra procedural imaging and fluoro during hardware revision, right wrist. Please see th e operative report for further details IMPRESSION: Intra procedural imaging and fluoro COMMENT: Quality ID 145: Final reports for procedures using fluoroscopy that document radiation exp osure indices, or exposure time and number of fluorographic images (if radiation exposure indices are not available) Please consult full operative report of the attending physician for description of the procedure. TECHNICAL DOCUMENTATION: JOB ID: [id number] [employer]- All Rights Reserved
--- NOTE | 2017-04-08 15:37 | RADIOLOGY REPORT (SQ) ---
EXAM DESCRIPTION: WRIST RIGHT 2 VIEWS; NO CHG FLUORO COMPLETED DATE/TIME: 04/08/2017 3:27 pm REASON FOR STUDY: PIN REMOVAL RIGHT WRIST ASSISTED W/ FLUORO IN OR T84.398A [facility] COMPL OF OTH BONE DEVICES, IMPLANTS AND GRAFTS COMPARISON: 01/07/2017 FLUOROSCOPY TIME: 3 seconds 2 digital C-arm images saved to PACS. TECHNIQUE: Intra-operative images acquired during surgical procedure to evaluate progress. NUMBER OF IMAGES: 2 digital C-arm images LIMITATIONS: None. FINDINGS: Intra procedural imaging and fluoro during hardware revision, right wrist. Please see th e operative report for further details IMPRESSION: Intra procedural imaging and fluoro COMMENT: Quality ID [id number]: Final reports for procedures using fluoroscopy that document radiation exp osure indices, or exposure time and number of fluorographic images (if radiation exposure indices are not available) Please consult full operative report of the attending physician for description of the procedure. TECHNICAL DOCUMENTATION: JOB ID: [id number] [employer]- All Rights Reserved
[2017-04-08 15:42] VITALS: BP 147/80
== END 2017-04-08 15:25 | disposition home or self-care (01) ==
LOC: OROUT 10:47
PROVIDERS: ATTEND Orthopaedic Surgery
PROC: 0PPH04Z Removal of Internal Fixation Device from Right Radius, Open Approach (ICD-10-PCS; principal; 2017-04-08 13:00)
DX: Z47.2 Encounter for removal of internal fixation device (principal); T84.398A Other mechanical complication of other bone devices, implants and grafts, initial encounter; S52.501A Unspecified fracture of the lower end of right radius, initial encounter for closed fracture; X58.XXXA Exposure to other specified factors, initial encounter
CPT/HCPCS: 36415 ×2; 84132; 85025; 80048; 81001; 73100; 20680; J2250; J3490 ×2; J2704; J0690; 01830

== ENCOUNTER 2017-09-21 08:01 | Day surgery (SDC) | payer BC, OTHER ==
[~2017-09-21 08:01] MED LIST changes: -BUPIVACAINE HCL 0.5 % INJ/PF 30 ML SDV ONE; -CEFAZOLIN 2 GM/D5W RTU 2 GM/50 ML RTUPB IV PRN; +KETOROLAC TROMETHAMINE 0.45% 4 DROP/0.4 ML DROPERETTE OD PRN; -LACTATED RINGERS 1000 ML IV PRN; -LIDOCAINE 0.5% INJ-PF (5 MG/ML) 50 ML SDV SUBCUT PRN; -LIDOCAINE 1% INJ-PF (10 MG/ML) 30 ML SDV ONE
[2017-09-21] MEDS ORDERED: EPINEPHRINE INJ/PF 1 MG/1 ML AMPULE ONE (08:16)
[2017-09-21] MEDS ORDERED: CHONDR SU A NA/HYALUR INTRAOC KIT (SURGICARE) ONE (08:17)
[2017-09-21] MEDS ORDERED: LIDOCAINE 1% INJ-PF (10 MG/ML) 30 ML SDV ONE (08:17)
[2017-09-21] MEDS: TETRACAINE HCL 0.5% OPH SOLN 0.6 ML DROPERETTE OD PRN ×2 (08:52→09:18)
[2017-09-21] MEDS: CYCLOPENTOLATE 0.2%/PHENYLEPHRINE 1% OPH SOLN 2 ML OD PRN ×3 (08:53→09:13)
[2017-09-21] MEDS: TROPICAMIDE 1% OPH SOLN 3 ML OD PRN ×3 (08:53→09:12)
[2017-09-21] MEDS: BESIFLOXACIN HCL 0.6% OPH SUSP 5 ML BOTTLE OD PRN ×5 (08:54→09:36)
[2017-09-21] MEDS ORDERED: MIDAZOLAM 2 MG/2 ML INJ ONE (09:02)
[2017-09-21] MEDS ORDERED: FENTANYL CITRATE INJ/PF 100 MCG/2 ML AMPUL ONE (09:02)
[2017-09-21] MEDS ORDERED: TRYPAN BLUE 0.06 % OPH SOLN 0.5 ML DISP.SYRIN ONE (09:20)
[2017-09-21] MEDS: TOBRAMYCIN SULFATE/DEXAMETH OPH OINTMENT 3.5 GM ONE ×2 (09:36)
== END 2017-09-21 10:19 | disposition home or self-care (01) ==
LOC: SC 08:01
PROVIDERS: ATTEND Ophthalmology
PROC: 08RJ3JZ Replacement of Right Lens with Synthetic Substitute, Percutaneous Approach (ICD-10-PCS; principal; 2017-09-21 09:15)
DX: H25.11 Age-related nuclear cataract, right eye (principal); E78.00 Pure hypercholesterolemia, unspecified; I10 Essential (primary) hypertension; J44.9 Chronic obstructive pulmonary disease, unspecified; K21.9 Gastro-esophageal reflux disease without esophagitis; F17.210 Nicotine dependence, cigarettes, uncomplicated; Z79.51 Long term (current) use of inhaled steroids; Z79.899 Other long term (current) drug therapy
CPT/HCPCS: 66984; V2630; J2250; J3490 ×4; J0171; J3010; 142

== ENCOUNTER 2017-10-05 10:05 | Day surgery (SDC) | payer BC, OTHER ==
[~2017-10-05 10:05] MED LIST changes: -KETOROLAC TROMETHAMINE 0.45% 4 DROP/0.4 ML DROPERETTE OD PRN; +KETOROLAC TROMETHAMINE 0.45% 4 DROP/0.4 ML DROPERETTE OS PRN
[2017-10-05] MEDS ORDERED: EPINEPHRINE INJ/PF 1 MG/1 ML AMPULE ONE (10:15)
[2017-10-05] MEDS ORDERED: TOBRAMYCIN SULFATE/DEXAMETH OPH OINTMENT 3.5 GM ONE (10:15)
[2017-10-05] MEDS ORDERED: CHONDR SU A NA/HYALUR INTRAOC KIT (SURGICARE) ONE (10:15)
[2017-10-05] MEDS ORDERED: LIDOCAINE 1% INJ-PF (10 MG/ML) 30 ML SDV ONE (10:15)
[2017-10-05] MEDS: TETRACAINE HCL 0.5% OPH SOLN 0.6 ML DROPERETTE OS PRN ×4 (10:24→10:57)
[2017-10-05] MEDS: CYCLOPENTOLATE 0.2%/PHENYLEPHRINE 1% OPH SOLN 2 ML OS PRN ×3 (10:25→10:45)
[2017-10-05] MEDS: TROPICAMIDE 1% OPH SOLN 3 ML OS PRN ×3 (10:25→10:45)
[2017-10-05] MEDS: BESIFLOXACIN HCL 0.6% OPH SUSP 5 ML BOTTLE OS PRN ×3 (10:26→11:17)
[2017-10-05] MEDS ORDERED: MIDAZOLAM 2 MG/2 ML INJ ONE ×2 (10:45→10:51)
== END 2017-10-05 11:51 | disposition home or self-care (01) ==
LOC: SC 10:05
PROVIDERS: ATTEND Ophthalmology
DX: H25.12 Age-related nuclear cataract, left eye (principal); Z98.41 Cataract extraction status, right eye; F17.210 Nicotine dependence, cigarettes, uncomplicated; I10 Essential (primary) hypertension; E78.00 Pure hypercholesterolemia, unspecified; K21.9 Gastro-esophageal reflux disease without esophagitis; J44.9 Chronic obstructive pulmonary disease, unspecified; Z79.899 Other long term (current) drug therapy; Z79.51 Long term (current) use of inhaled steroids
CPT/HCPCS: 66984; V2630; J2250; J3490 ×3; J0171; 142

== ENCOUNTER 2017-10-31 09:32 | Day surgery (SDC) | payer BC ==
[2017-10-21 12:01] LABS: HEMATOCRIT 38.1 % (36.0-47.0); HEMOGLOBIN 12.4 g/dL (12.0-15.5); MEAN CORPUSCULAR HEMOGLOBIN 26.6 pg (27.0-33.4); MEAN CORPUSCULAR HGB CONC 32.5 g/dL (32.0-36.0); MEAN CORPUSCULAR VOLUME 82 fl (80-97); PLATELET COUNT 369 10^3/uL (150-450); RED BLOOD COUNT 4.65 10^6/uL (3.72-5.28); RED CELL DISTRIBUTION WIDTH 15.4 % (11.5-14.0); WHITE BLOOD COUNT 8.1 10^3/uL (4.0-10.5)
[2017-10-21 12:02] LABS: APPEARANCE,URINE CLEAR; BILIRUBIN,URINE NEGATIVE (NEGATIVE); COLOR,URINE YELLOW; GLUCOSE, URINE NEGATIVE (NEGATIVE); KETONES,URINE NEGATIVE (NEGATIVE); LEUKOCYTE ESTERASE,URINE NEGATIVE (NEGATIVE); NITRITE,URINE NEGATIVE (NEGATIVE); PROTEIN,URINE NEGATIVE (NEGATIVE); URINE SPECIFIC GRAVITY 1.008; UROBILINOGEN,URINE NEGATIVE mg/dL (<2.0)
[2017-10-21 12:23] LABS: ALANINE AMINOTRANSFERASE 194 U/L (9-52); ALBUMIN 4.5 g/dL (3.5-5.0); ALKALINE PHOSPHATASE 221 U/L (38-126); ANION GAP 10 (5-19); ASPARTATE AMINO TRANSFERASE 164 U/L (14-36); BILIRUBIN,DIRECT 0.3 mg/dL (0.0-0.4); BILIRUBIN,TOTAL 0.9 mg/dL (0.2-1.3); BLOOD UREA NITROGEN 12 mg/dL (7-20); CALCIUM 9.8 mg/dL (8.4-10.2); CARBON DIOXIDE 25 mmol/L (22-30); CHLORIDE 105 mmol/L (98-107); GLUCOSE 89 mg/dL (75-110); POTASSIUM 4.4 mmol/L (3.6-5.0); SODIUM 139.6 mmol/L (137-145); TOTAL PROTEIN 6.8 g/dL (6.3-8.2)
--- NOTE | 2017-10-21 21:02 | EKG REPORT ---
SEVERITY:- NORMAL ECG - SINUS RHYTHM : Confirmed by: Bhavya Hughes 21-Oct-2017 21:02:13
[~2017-10-31 09:32] MED LIST changes: +ACETAMINOPHEN 100 ML IV ONE; +CEFAZOLIN 1 GM/D5W RTU 1 GM/50 ML RTUPB IV PRN; +DEXAMETHASONE SOD PHOSPHATE INJ 4 MG/1 ML VIAL ONE; +FENTANYL CITRATE INJ/PF 100 MCG/2 ML AMPUL ONE; -KETOROLAC TROMETHAMINE 0.45% 4 DROP/0.4 ML DROPERETTE OS PRN; +LACTATED RINGERS 1000 ML IV PRN; +LIDOCAINE 0.5% INJ-PF (5 MG/ML) 50 ML SDV SUBCUT PRN; +LIDOCAINE 2% INJ-PF (20 MG/ML) 10 ML AMPUL ONE; +MIDAZOLAM 2 MG/2 ML INJ ONE; +ONDANSETRON HCL INJ/PF 4 MG/2 ML SDV ONE; +PROPOFOL INJ 200 MG/20 ML VIAL IV ONE
[2017-10-31] MEDS ORDERED: PROMETHAZINE HCL INJ 25 MG/1 ML VIAL IV PRN ×2 (13:06)
[2017-10-31] MEDS ORDERED: MORPHINE SULFATE 10 MG/ML INJ IV PRN (13:06)
[2017-10-31] MEDS ORDERED: DIPHENHYDRAMINE HCL 50 MG/ML VIAL IV PRN (13:06)
[2017-10-31] MEDS ORDERED: MEPERIDINE HCL/PF INJ 25 MG/1 ML DISP.SYRIN IV PRN (13:06)
[2017-10-31] MEDS ORDERED: OXYCODONE-ACETAMINOPHEN 5-325 MG TABLET PO PRN ×2 (13:06)
[2017-10-31] MEDS ORDERED: FENTANYL CITRATE INJ/PF 100 MCG/2 ML AMPUL IV PRN ×3 (13:06)
[2017-10-31] MEDS ORDERED: PHENYLEPHRINE HCL INJ/PF 10 MG/1 ML SDV ONE (13:42)
[2017-10-31] MEDS ORDERED: VECURONIUM BROMIDE INJ 10 MG VIAL IV ONE (13:42)
[2017-10-31] MEDS ORDERED: SUCCINYLCHOLINE CHLORIDE INJ 200 MG/10 ML VIAL ONE (13:42)
[2017-10-31] MEDS ORDERED: GLYCOPYRROLATE INJ 0.4 MG/2 ML VIAL ONE (13:42)
[2017-10-31] MEDS ORDERED: NEOSTIGMINE METHYLSULFATE 10 MG/10 ML VIAL ONE (13:42)
[2017-10-31] MEDS: FENTANYL CITRATE INJ/PF 100 MCG/2 ML AMPUL ONE ×2 (14:05→14:15)
--- NOTE | 2017-10-31 14:53 | OPERATIVE REPORT E ---
Operative Report NAME: SALINA MCCURDY : 1955 AGE: 62Y DATE OF SURGERY: 10/31/2017 ROOM: PREOPERATIVE DIAGNOSES: CYSTOCELE, RECTOCELE, AND BRANDON. POSTOPERATIVE DIAGNOSES: CYSTOCELE, RECTOCELE, AND BRANDON. OPERATION: A and P repair and a TBT using Linx. SURGEON: Davon EPSTEIN M.D. ANESTHESIA: General. ESTIMATED BLOOD LOSS: Approximately 100 mL. TISSUE REMOVED OR ALTERED: Vaginal mucosa. PROCEDURE: The patient was placed in a dorsal lithotomy position and prepped and draped in a sterile fashion. The speculum was placed and the vaginal mucosa was grasped a cm below the urethra with sharp dissection and divided approximately 2.5 cm. Underlying vesicovaginal tissue was bluntly and sharply divided through the posterior aspect. The symphysis could be palpated. Two puncture wounds were made above the symphysis lateral to the midline and the Linx needles were passed down from the top and out through the patient's defect. Cystoscopy was then performed with no foreign bodies being noted. The Linx tape was then placed on the ends of the needles and pulled back through. A pair of Roche scissors were kept on the urethra for tension-free placement. The defect was then closed with a suture of 2-0 Vicryl. The anterior repair was accomplished by grasping the vaginal mucosa slightly below that incision and entering in the midline to just above the old uterine scar. The underlying vesicovaginal tissue was bluntly and sharply divided and then plicated with multiple 2-0 Vicryl in the midline. Excess vaginal mucosa was removed and the defect closed with a running suture of 2-0 Vicryl. The posterior repair was then accomplished by grasping the vaginal mucosa at the rim of the hymenal ring, dividing crosswise, divided in the midline to just below the whole uterine cuff incision. The underlying vesicovaginal tissue was then plicated in the midline using multiple interrupted 2-0 Vicryl. The Anchorsure was used to anchor into the right sacrospinous ligament and the other end was placed in the vaginal mucosa, and the vaginal mucosa was pulled up and secured to the sacrospinous ligament. The vaginal mucosa excess was removed, and the defect closed with a running suture of 2-0 Vicryl. A vaginal pad was placed. Her urine remained clear throughout the procedure. She was taken to the recovery room in good condition. DICTATING PHYSICIAN: Davon EPSTEIN M.D. [id number] PHY#: [id number] ID: [id number] JOB#: [id number] ACCT: [id number] cc:Davon EPSTEIN M.D. >
[2017-10-31] MEDS: OXYCODONE-ACETAMINOPHEN 5-325 MG TABLET PO PRN ×2 (17:14→21:30)
[2017-10-31] MEDS ORDERED: IBUPROFEN 800 MG TABLET PO SCH (18:00)
[2017-10-31] MEDS ORDERED: ONDANSETRON HCL INJ/PF 4 MG/2 ML SDV IV PRN (20:57)
[2017-10-31] MEDS: RINGERS SOLUTION,LACTATED 1,000 ML IV PRN (21:31)
[2017-10-31] MEDS: MAG HYDROX/AL HYDROX/SIMETH SUSP 30 ML UDCUP PO PRN (21:31)
[2017-11-01] MEDS: RINGERS SOLUTION,LACTATED 1,000 ML IV PRN (04:09)
[2017-11-01] MEDS: OXYCODONE-ACETAMINOPHEN 5-325 MG TABLET PO PRN (07:33)
[2017-11-01] MEDS: MAG HYDROX/AL HYDROX/SIMETH SUSP 30 ML UDCUP PO PRN (08:01)
[2017-11-01 08:14] VITALS: BP 107/45
== END 2017-11-01 08:57 | disposition home or self-care (01) ==
LOC: OROUT 09:32 → 2S 15:40 → OROUT 11-01 08:57
PROVIDERS: ATTEND Obstetrics & Gynecology Gynecology
DX: N81.10 Cystocele, unspecified (principal); N81.6 Rectocele; N39.3 Stress incontinence (female) (male); I10 Essential (primary) hypertension; N39.42 Incontinence without sensory awareness; K21.9 Gastro-esophageal reflux disease without esophagitis; Z87.891 Personal history of nicotine dependence
CPT/HCPCS: 93005; 86900; 86901; 36415 ×2; 86850; 84132; 85027; 80053; 81001; 88305 ×2; 93010; 57260; 57288; C1771; J2250; J0690; J1100; J3010; J3490 ×2; J2370; J0330; J2405; J7120 ×2; J2704; J0131; 942

== ENCOUNTER → 2018-09-18 | Outpatient (CLI) | payer BC ==
[2018-09-18 14:07] LABS: HEMATOCRIT 31.6 % (36.0-47.0); HEMOGLOBIN 10.1 g/dL (12.0-15.5); MEAN CORPUSCULAR HEMOGLOBIN 21.5 pg (27.0-33.4); MEAN CORPUSCULAR VOLUME 67 fl (80-97); PLATELET COUNT 555 10^3/uL (150-450); RED CELL DISTRIBUTION WIDTH 20.6 % (11.5-14.0); WHITE BLOOD COUNT 9.7 10^3/uL (4.0-10.5)
[2018-09-18 14:31] LABS: ALANINE AMINOTRANSFERASE 24 U/L (9-52); ALKALINE PHOSPHATASE 101 U/L (38-126); ASPARTATE AMINO TRANSFERASE 22 U/L (14-36); BILIRUBIN,DIRECT 0.1 mg/dL (0.0-0.4); BILIRUBIN,TOTAL 0.4 mg/dL (0.2-1.3); TOTAL PROTEIN 6.5 g/dL (6.3-8.2)
== END ==
LOC: OD 13:17
PROVIDERS: ATTEND Internal Medicine Gastroenterology
DX: D64.9 Anemia, unspecified (principal); R94.5 Abnormal results of liver function studies
CPT/HCPCS: 36415; 80076; 85027

== ENCOUNTER 2018-10-03 15:09 | Emergency (ER) | payer BC ==
[2018-10-03] MEDS ORDERED: ONDANSETRON HCL INJ/PF 4 MG/2 ML SDV IV ONE ×2 (16:00→21:02)
[2018-10-03] MEDS ORDERED: MORPHINE SULFATE 10 MG/ML INJ IV ONE ×2 (16:00→18:48)
[2018-10-03] MEDS ORDERED: NORMAL SALINE 1000 ML 1,000 ML IV ONE (16:01)
--- NOTE | 2018-10-03 16:08 | ER Document Report ---
ED Medical Screen (RME) - General Chief Complaint: Abdominal Pain Stated Complaint: ABDOMINAL PAIN Time Seen by Provider: 10/03/18 15:54 Primary Care Provider: ROOSEVELT EL MD [Primary Care Provider] - Follow up as needed TRAVEL OUTSIDE OF THE [place] IN LAST 30 DAYS: No - HPI Notes: 10/03/18 16:01 Patient is a 63-year-old female that presents to the emergency department for chief complaint of abdominal pain. Patient reports abdominal pain over the last month. Yesterday she had an EGD performed by Dr. El. Patient does not know the results of her EGD. She had a CT scan and blood work today ordered by Dr. Montelongo. Patient has the CT disc with her and states it was ordered stat but she does not have the reading. I did try to contact Dr. Hansen is office but there was no answer, I left a message. patient is filling out paperwork to release medical records. ROS: GENERAL: Denies fever of chills CV: Denies chest pain PHYSICAL EXAMINATION: GENERAL: Well-appearing, well-nourished and in no acute distress. HEAD: Atraumatic, normocephalic. EYES: Pupils equal round extraocular movements intact, conjunctiva are normal. ENT: Nares patent NECK: Normal range of motion LUNGS: No respiratory distress Musculoskeletal: Normal range of motion NEUROLOGICAL: Normal speech, normal gait. PSYCH: Normal mood, normal affect. MDM: Patient seen and examined for rapid initial assessment. Vital signs reviewed. A comprehensive ED assessment and evaluation of the patient, analysis of test results and completion of the medical decision making process will be conducted by additional ED providers. - Related Data Allergies/Adverse Reactions: No Known Allergies Allergy (Verified 10/12/17 15:22) Past Medical History - Past Medical History Cardiac Medical History: Reports: Hx Hypertension Denies: Hx Coronary Artery Disease, Hx Heart Attack Pulmonary Medical History: Reports: Hx COPD - USES INHALER Denies: Hx Asthma, Hx Bronchitis, Hx Pneumonia Neurological Medical History: Denies: Hx Cerebrovascular Accident, Hx Seizures Renal/ Medical History: Denies: Hx Peritoneal Dialysis GI Medical History: Reports: Hx Gastroesophageal Reflux Disease. Denies: Hx Hepatitis, Hx Hiatal Hernia, Hx Ulcer Musculoskeltal Medical History: Reports Hx Arthritis - KNEES, BACK Infectious Medical History: Denies: Hx Hepatitis Past Surgical History: Reports: Hx Abdominal Surgery - Gastric sleeve, Hx Appendectomy, Hx Orthopedic Surgery, Hx Tonsillectomy. Denies: Hx Mastectomy, Hx Open Heart Surgery, Hx Pacemaker - Immunizations Hx Diphtheria, Pertussis, Tetanus Vaccination: Yes - UNSURE WHEN History of Influenza Vaccine for 04/2017 - 09/2017 Season: Yes Influenza Administration Date for 04/2017 - 09/2017 Season: 07/22/17 Physical Exam - Vital signs Vitals: Temp Pulse Resp BP Pulse Ox 98.7 F 103 H 20 118/57 L 99 10/03/18 15:21 10/03/18 15:21 10/03/18 15:21 10/03/18 15:21 10/03/18 15:21 Course - Vital Signs Vital signs: Temp Pulse Resp BP Pulse Ox 98.7 F 103 H 20 118/57 L 99 10/03/18 15:21 10/03/18 15:21 10/03/18 15:21 10/03/18 15:21 10/03/18 15:21 Doctor's Discharge - Discharge Referrals: ROOSEVELT EL MD [Primary Care Provider] - Follow up as needed
[2018-10-03] MEDS ORDERED: METRONIDAZOLE 500 MG/NS RTU 500 MG/100 ML RTUPB IV ONE (17:28)
[2018-10-03] MEDS ORDERED: CIPROFLOXACIN 400 MG/D5W RTU 400 MG/200 ML RTUPB IV ONE (17:29)
--- NOTE | 2018-10-03 17:36 | ER Document Report ---
ED General <HUANG DODGE - Last Filed: 10/04/18 03:29> - General Mode of Arrival: Ambulatory Information source: Patient TRAVEL OUTSIDE OF THE [place] IN LAST 30 DAYS: No - HPI Onset: Other - 1 month Onset/Duration: Worse Quality of pain: Achy, Sharp Pain Level: 4 Associated symptoms: Headache, Nausea, Vomiting. denies: Chest pain, Nonproductive cough, Productive cough, Diarrhea, Fever, Leg swelling, Sore throat Exacerbated by: Denies Relieved by: Denies Similar symptoms previously: No Recently seen / treated by doctor: Yes <AMY ALVARADO - Last Filed: 10/04/18 08:17> - General Chief Complaint: Abdominal Pain Stated Complaint: ABDOMINAL PAIN Time Seen by Provider: 10/03/18 15:54 Primary Care Provider: SOY JACKSON MD [ACTIVE STAFF] - Follow up tomorrow Notes: Patient presents complaining of abdominal pain for the past month. Patient sta eli that 2 weeks ago she had labs on an outpatient basis from her primary doctor and she had a CT scan performed today although she has not seen her primary doctor recently. Her doctor had just been ordering these tests in anticipation of her annual physical exam. Patient states that she did see a GI doctor and had an EGD yesterday although she does not know the results of that test. Patient states that the staff at her primary doctor office advised her to come here for further evaluation because of concerning CT scan report. Patient states that she has had lower abdominal pain that does radiate to the back. Patient reports vomiting x1 episode today. Patient denies any diarrhea. Patie nt reports last bowel movement was 2 days ago. Patient denies any fever. Patient additionally complains of headaches daily for the past 6 months although reports memory problems for the past month which is something new for her. Patient's primary doctor had faxed over the results of her laboratory test performed earlier this month in addition to the CT scan performed earlier today which was a noncontrasted study of the abdomen and pelvis that demonstrates findings worrisome for a primary ovarian cancer with metastasis as well as inflammatory findings worrisome for possible diverticulitis. (AMY ALVARADO) - Related Data Allergies/Adverse Reactions: No Known Allergies Allergy (Verified 10/12/17 15:22) Past Medical History - General Information source: Patient - Social History Smoking Status: Current Every Day Smoker Chew tobacco use (# tins/day): No Frequency of alcohol use: None Drug Abuse: None Occupation: [employer] management Family History: Reviewed & Not Pertinent Patient has suicidal ideation: No Patient has homicidal ideation: No - Past Medical History Cardiac Medical History: Reports: Hx Hypertension Pulmonary Medical History: Reports: Hx COPD - USES INHALER Neurological Medical History: Denies: Hx Cerebrovascular Accident, Hx Seizures Renal/ Medical History: Denies: Hx Peritoneal Dialysis GI Medical History: Reports: Hx Gastroesophageal Reflux Disease Musculoskeletal Medical History: Reports Hx Arthritis - KNEES, BACK Infectious Medical History: Denies: Hx Hepatitis Past Surgical History: Reports: Hx Abdominal Surgery - Gastric sleeve, Hx Appendectomy, Hx Orthopedic Surgery, Hx Tonsillectomy - Immunizations Hx Diphtheria, Pertussis, Tetanus Vaccination: Yes - UNSURE WHEN Hx Pneumococcal Vaccination: 08/18/17 <AMY ALVARADO - Last Filed: 10/04/18 08:17> Review of Systems - Review of Systems Constitutional: No symptoms reported. denies: Fever EENT: No symptoms reported Cardiovascular: No symptoms reported. denies: Chest pain Respiratory: No symptoms reported. denies: Cough, Short of breath Gastrointestinal: Abdominal pain, Nausea, Vomiting. denies: Diarrhea, Poor appetite Genitourinary: No symptoms reported. denies: Dysuria, Flank pain Female Genitourinary: No symptoms reported Musculoskeletal: Back pain Skin: No symptoms reported Hematologic/Lymphatic: No symptoms reported Neurological/Psychological: Headaches, Other - Memory problems <AMY ALVARADO - Last Filed: 10/04/18 08:17> Physical Exam - General General appearance: Appears well, Alert In distress: None - HEENT Head: Normocephalic, Atraumatic Eyes: Normal Conjunctiva: Normal Nasal: Normal Mouth/Lips: Normal Mucous membranes: Normal Neck: Normal, Supple. No: Lymphadenopathy - Respiratory Respiratory status: No respiratory distress Chest status: Nontender Breath sounds: Normal. No: Rales, Rhonchi, Stridor, Wheezing Chest palpation: Normal - Cardiovascular Rhythm: Regular Heart sounds: S1 appreciated, S2 appreciated - Abdominal Inspection: Obese Distension: No distension Bowel sounds: Normal Tenderness: Tender - Generalized tenderness to the lower abdomen and right upper quadrant Organomegaly: No organomegaly - Back Back: Tender - Lumbar paraspinal tenderness. No: CVA tenderness - Extremities General upper extremity: Normal inspection, Nontender, Normal ROM General lower extremity: Normal inspection, Nontender, Normal ROM - Neurological Neuro grossly intact: Yes Cognition: Normal Parkman Coma Scale Eye Opening: Spontaneous Parkman Coma Scale Verbal: Oriented Parkman Coma Scale Motor: Obeys Commands Parkman Coma Scale Total: 15 - Psychological Associated symptoms: Normal affect, Normal mood - Skin Skin Temperature: Warm Skin Moisture: Dry Skin Color: Pale <AMY ALVARADO - Last Filed: 10/04/18 08:17> - Vital signs Vitals: Temp Pulse Resp BP Pulse Ox 98.7 F 103 H 20 118/57 L 99 10/03/18 15:21 10/03/18 15:21 10/03/18 15:21 10/03/18 15:21 10/03/18 15:21 Course - Laboratory Result Diagrams: 10/03/18 17:38 10/03/18 17:38 <HUANG DODGE - Last Filed: 10/04/18 03:29> - Laboratory Result Diagrams: 10/03/18 17:38 10/03/18 17:38 - Diagnostic Test Radiology reviewed: Reports reviewed <AMY ALVARADO - Last Filed: 10/04/18 08:17> - Re-evaluation Re-evalutation: CT of the head with no acute findings. CT of the chest/abdomen/pelvis showing multiple cystic masses in the pelvis, peritoneal metastasis, some ascites, and evidence for diverticulitis. Patient has already been given Cipro and Flagyl IV. I called and spoke with Dr. Jackson, oncology on-call. She recommends that I speak with gynecology/oncology at [facility] to expedite patient's process of being seen, biopsied, managed. She also requests patient be referred to her. 10/03/18 23:45 Called [facility] transfer center, pending callback. 10/04/18 01:[address] I spoke with Gynecology Dr[address] Heath at [facility]. He recommends that patient be seen by their specialist with gynecology oncology, he provides the contact information for patient to call tomorrow to be seen in the office in close followup. Discussed this with patient. Patient is very agreeable with this, she is very ready to leave, she expresses gratefulness for care. No complaints at time of discharge. (HUANG DODGE) 10/03/18 17:[address] Cooper who recommends adding CT of the head but also recommends consultation with radiologist to determine if it would be of value to go ahead and do a CT head, chest, abdomen and pelvis with IV and oral contrast for further evaluation given patient's outpatient noncontrasted CT report. 10/03/18 17:34 Consulted with radiologist, Dr. Burgre, who does recommend repeating the scan of chest abdomen and pelvis with IV and oral contrast as well as a CT of the head. 10/03/18 18:49 Patient's family at bedside, updated regarding patient's plan of care at this time. Additional pain medications ordered. 10/03/18 20:21 Bedside report and handoff given to Huang IGLESIAS (AMY ALVARADO) - Vital Signs Vital signs: Temp Pulse Resp BP Pulse Ox 97.6 F 96 16 130/71 H 92 10/04/18 00:45 10/04/18 00:45 10/04/18 00:45 10/04/18 00:45 10/04/18 00:45 - Laboratory Laboratory results interpreted by me: 10/03/18 10/03/18 10/03/18 17:38 17:38 23:30 WBC 14.7 H Hgb 9.5 L Hct 30.3 L MCV 67 L MCH 21.0 L MCHC 31.2 L RDW 20.0 H Plt Count 760 H Seg Neutrophils % 85.5 H Lymphocytes % 7.1 L Absolute Neutrophils 12.6 H Sodium 135.4 L Alkaline Phosphatase 128 H Total Protein 6.0 L Albumin 3.2 L Lipase 16.7 L Urine Ketones TRACE H Urine Urobilinogen 4.0 H Ur Leukocyte Esterase TRACE H Discharge <HUANG DODGE - Last Filed: 10/04/18 03:29> <AMY ALVARADO - Last Filed: 10/04/18 08:17> - Discharge Clinical Impression: Abdominal pain, Mass, ovarian, Mass of peritoneum, Diverticulitis Condition: Stable Disposition: HOME, SELF-CARE Additional Instructions: Your imaging indicates masses in your pelvis with spread to the part of your abd omen called the peritoneum. You have some built up fluid in your abdomen called ascites because of this. In addition to this you have an infection called diverticulitis. Take your antibiotics as prescribed, take your pain and nausea medication as needed, he may need to start with clear fluid diet for the first 1-2 days. I spoke with Gynecology Dr. Heath at [facility]. Please call [phone] tomorrow (Dr. Alonzo Stallworth-[facility]). I have spoken to Dr. Jackson, oncology, about your workup, call her office for followup. You will also need gynecology/oncology for management. Return if you worsen including severe worsening pain, vomiting, fever, or any other concerning symptoms. Prescriptions: RX: Ciprofloxacin HCl [Cipro 500 mg Tablet] 500 mg PO BID #14 tablet Metronidazole [Flagyl 500 mg Tablet] 500 mg PO TID #21 tablet Ondansetron [Zofran Odt 4 mg Tablet] 1 - 2 tab PO Q4H PRN #15 tab.rapdis PRN Reason: For Nausea/Vomiting Oxycodone HCl/Acetaminophen [Percocet 5-325 mg Tablet] 1 - 2 tab PO Q4H PRN #15 tablet PRN Reason: Referrals: SOY JACKSON MD [ACTIVE STAFF] - Follow up tomorrow
[2018-10-03 17:57] LABS: ABSOLUTE NEUT (AUTO) 12.6 10^3/uL (1.7-8.2); BASOPHILS % (AUTO) 0.2 % (0-2); EOSINOPHILS % (AUTO) 0.3 % (0-6); HEMATOCRIT 30.3 % (36.0-47.0); HEMOGLOBIN 9.5 g/dL (12.0-15.5); LYMPHOCYTES % (AUTO) 7.1 % (13-45); MEAN CORPUSCULAR HGB CONC 31.2 g/dL (32.0-36.0); MEAN CORPUSCULAR VOLUME 67 fl (80-97); MONOCYTES % (AUTO) 6.9 % (3-13); PLATELET COUNT 760 10^3/uL (150-450); RED BLOOD COUNT 4.52 10^6/uL (3.72-5.28); SEGMENTED NEUTROPHILS % (AUTO) 85.5 % (42-78); TOTAL CELLS COUNTED % (AUTO) 100 %; WHITE BLOOD COUNT 14.7 10^3/uL (4.0-10.5)
[2018-10-03 18:28] LABS: ALANINE AMINOTRANSFERASE 30 U/L (9-52); ALBUMIN 3.2 g/dL (3.5-5.0); ALKALINE PHOSPHATASE 128 U/L (38-126); ANION GAP 13 (5-19); ASPARTATE AMINO TRANSFERASE 21 U/L (14-36); BILIRUBIN,DIRECT 0.4 mg/dL (0.0-0.4); BILIRUBIN,TOTAL 0.6 mg/dL (0.2-1.3); BLOOD UREA NITROGEN 10 mg/dL (7-20); CALCIUM 9.1 mg/dL (8.4-10.2); CARBON DIOXIDE 24 mmol/L (22-30); CHLORIDE 98 mmol/L (98-107); GLUCOSE 110 mg/dL (75-110); LIPASE 16.7 U/L (23-300); POTASSIUM 3.7 mmol/L (3.6-5.0); SODIUM 135.4 mmol/L (137-145)
--- NOTE | 2018-10-03 22:57 | RADIOLOGY REPORT (SQ) ---
EXAM DESCRIPTION: CT HEAD WITH IV CONTRAST COMPLETED DATE/TME: 10/03/2018 17:32 CLINICAL HISTORY: 63 years, Female, ovarian ca, mets, OLIVER COMPARISON: None. TECHNIQUE: 76 Images stored on PACS. All CT scanners at this facility use dose modulation, iterative reconstruction, and/or weight based dosing when appropriate to reduce radiation dose to as low as reasonably achievable (ALARA). [facility]: Dose Right [facility]: CareDose [facility]: Dose Right [facility]: Teradose 4D [facility]: [employer] LIMITATIONS: None. FINDINGS: The globes are intact. Polyps of the right maxillary and right sphenoid sinus. No displaced or depressed skull fracture. No intra or extra-axial hemorrhage. CT is limited for evaluation of acute infarct. No CT evidence for large or territorial acute infarct. No mass or midline shift. Mild diffuse atrophy IMPRESSION: Mild diffuse atrophy. Negative for acute intracranial abnormality TECHNICAL DOCUMENTATION: Quality ID # 436: Final reports with documentation of one or more dose reduction techniques (e.g., Automated exposure control, adjustment of the mA and/or kV according to patient size, use of iterative reconstruction technique) copyright 2011 [employer]- All Rights Reserved
--- NOTE | 2018-10-03 23:11 | RADIOLOGY REPORT (SQ) ---
EXAM DESCRIPTION: CT CHEST WITH IV CONTRAST, CT ABDOMEN PELVIS WITH IV CONTRAST COMPLETED DATE/TME: 10/03/2018 17:32 (accession [id number]), 10/03/2018 00:00 (accession [id number]) CLINICAL HISTORY: 63 years, Female, ovarian ca, mets, ?diverticulitis COMPARISON: None. TECHNIQUE: Unknown number Images stored on PACS. All CT scanners at this facility use dose modulation, iterative reconstruction, and/or weight based dosing when appropriate to reduce radiation dose to as low as reasonably achievable (ALARA). [facility]: Dose Right [facility]: CareDose [facility]: Dose Right [facility]: Teradose 4D [facility]: [employer] LIMITATIONS: None. FINDINGS: CT chest: The mediastinal vasculature enhances normally. No mediastinal or hilar adenopathy. The heart and pericardium are unremarkable. There is distention of the esophagus, which is filled with fluid and contrast. Osseous structures of the thorax are grossly intact. No pneumothorax. Mild to moderate emphysematous changes in the upper lobes and apices. Minor consolidative changes in each lung base. Tiny left pleural effusion. Subsegmental atelectasis in the lung bases bilaterally. CT abdomen/pelvis: Osseous structures are grossly intact. Moderate-sized hiatal hernia. Slightly nodular contour to the liver suspicious for cirrhotic change. The spleen, adrenal glands, pancreas, kidneys are unremarkable. Moderate atheromatous change. The gallbladder is present. No gross evidence for bowel obstruction. Small to moderate volume of ascites. In addition there is poorly defined areas of fat stranding and soft tissue density of the anterior peritoneal cavity likely reflecting peritoneal implants/metastases. There is sigmoid diverticulosis. Minor adjacent inflammatory change could reflect minor diverticulitis. No abscess, or free air. Poorly defined complex appearing cystic masses within the pelvis may reflect the patient's known history of ovarian cancer. IMPRESSION: Mild to moderate emphysematous changes. Minor consolidative change in the lung bases. Tiny left pleural effusion. Distention of the esophagus. Moderate-sized hiatal hernia. Slightly nodular contour to the liver suspicious for cirrhotic change. Small to moderate volume of ascites. Probable peritoneal implants/metastases. Sigmoid diverticulosis with minor diverticulitis. No abscess or free air. Poorly defined complex cystic masses in the pelvis likely reflecting the patient's known primary malignancy. TECHNICAL DOCUMENTATION: Quality ID # 436: Final reports with documentation of one or more dose reduction techniques (e.g., Automated exposure control, adjustment of the mA and/or kV according to patient size, use of iterative reconstruction technique) copyright 2011 [employer]- All Rights Reserved
--- NOTE | 2018-10-03 23:11 | RADIOLOGY REPORT (SQ) ---
EXAM DESCRIPTION: CT CHEST WITH IV CONTRAST, CT ABDOMEN PELVIS WITH IV CONTRAST COMPLETED DATE/TME: 10/03/2018 17:32 (accession [id number]), 10/03/2018 00:00 (accession [id number]) CLINICAL HISTORY: 63 years, Female, ovarian ca, mets, ?diverticulitis COMPARISON: None. TECHNIQUE: Unknown number Images stored on PACS. All CT scanners at this facility use dose modulation, iterative reconstruction, and/or weight based dosing when appropriate to reduce radiation dose to as low as reasonably achievable (ALARA). [facility]: Dose Right [facility]: CareDose [facility]: Dose Right [facility]: Teradose 4D [facility]: [employer] LIMITATIONS: None. FINDINGS: CT chest: The mediastinal vasculature enhances normally. No mediastinal or hilar adenopathy. The heart and pericardium are unremarkable. There is distention of the esophagus, which is filled with fluid and contrast. Osseous structures of the thorax are grossly intact. No pneumothorax. Mild to moderate emphysematous changes in the upper lobes and apices. Minor consolidative changes in each lung base. Tiny left pleural effusion. Subsegmental atelectasis in the lung bases bilaterally. CT abdomen/pelvis: Osseous structures are grossly intact. Moderate-sized hiatal hernia. Slightly nodular contour to the liver suspicious for cirrhotic change. The spleen, adrenal glands, pancreas, kidneys are unremarkable. Moderate atheromatous change. The gallbladder is present. No gross evidence for bowel obstruction. Small to moderate volume of ascites. In addition there is poorly defined areas of fat stranding and soft tissue density of the anterior peritoneal cavity likely reflecting peritoneal implants/metastases. There is sigmoid diverticulosis. Minor adjacent inflammatory change could reflect minor diverticulitis. No abscess, or free air. Poorly defined complex appearing cystic masses within the pelvis may reflect the patient's known history of ovarian cancer. IMPRESSION: Mild to moderate emphysematous changes. Minor consolidative change in the lung bases. Tiny left pleural effusion. Distention of the esophagus. Moderate-sized hiatal hernia. Slightly nodular contour to the liver suspicious for cirrhotic change. Small to moderate volume of ascites. Probable peritoneal implants/metastases. Sigmoid diverticulosis with minor diverticulitis. No abscess or free air. Poorly defined complex cystic masses in the pelvis likely reflecting the patient's known primary malignancy. TECHNICAL DOCUMENTATION: Quality ID # 436: Final reports with documentation of one or more dose reduction techniques (e.g., Automated exposure control, adjustment of the mA and/or kV according to patient size, use of iterative reconstruction technique) copyright 2011 [employer]- All Rights Reserved
[2018-10-03 23:50] LABS: APPEARANCE,URINE SLIGHTLY-CLOUDY; BILIRUBIN,URINE NEGATIVE (NEGATIVE); COLOR,URINE AMBER; GLUCOSE, URINE NEGATIVE (NEGATIVE); KETONES,URINE TRACE mg/dL (NEGATIVE); LEUKOCYTE ESTERASE,URINE TRACE (NEGATIVE); NITRITE,URINE NEGATIVE (NEGATIVE); PROTEIN,URINE NEGATIVE (NEGATIVE)
[2018-10-03 23:58] LABS: URINE SPECIFIC GRAVITY > 1.060
[2018-10-04] MEDS ORDERED: MORPHINE SULFATE 10 MG/ML INJ IV ONE (00:08)
[2018-10-04] MEDS ORDERED: ONDANSETRON ODT 4 MG TAB (6 TAB/ER DISP) PO PRN (00:29)
[2018-10-04] MEDS ORDERED: HYDROCODONE/ACETAMINOPHEN 5-325 MG (6 TAB/ER DISP) PO PRN (00:29)
[2018-10-04 00:53] VITALS: BP 130/71
== END 2018-10-04 01:26 | disposition home or self-care (01) ==
LOC: ER 15:09
DX: K57.32 Diverticulitis of large intestine without perforation or abscess without bleeding (principal); N83.9 Noninflammatory disorder of ovary, fallopian tube and broad ligament, unspecified; K66.9 Disorder of peritoneum, unspecified; N94.89 Other specified conditions associated with female genital organs and menstrual cycle; R18.8 Other ascites; R51 Headache; R11.2 Nausea with vomiting, unspecified; R10.30 Lower abdominal pain, unspecified; R10.811 Right upper quadrant abdominal tenderness; R10.813 Right lower quadrant abdominal tenderness; R41.3 Other amnesia; F17.200 Nicotine dependence, unspecified, uncomplicated; M54.9 Dorsalgia, unspecified; I10 Essential (primary) hypertension; J44.9 Chronic obstructive pulmonary disease, unspecified; Z87.19 Personal history of other diseases of the digestive system; Z98.84 Bariatric surgery status; Z90.49 Acquired absence of other specified parts of digestive tract
CPT/HCPCS: 96376; 99284; 96361; 96375; 96365; 96368; 36415; 83690; 85025; 80053; 81001; 70450; 71260; 74177; J2270 ×2; J2405; J7030; J0744

== ENCOUNTER 2018-10-09 10:57 | Day surgery (SDC) | payer BC ==
[2018-10-09 11:50] LABS: HEMOGLOBIN 10.1 g/dL (12.0-15.5); MEAN CORPUSCULAR HEMOGLOBIN 20.7 pg (27.0-33.4); MEAN CORPUSCULAR HGB CONC 31.6 g/dL (32.0-36.0); MEAN CORPUSCULAR VOLUME 65 fl (80-97); PLATELET COUNT 915 10^3/uL (150-450); RED BLOOD COUNT 4.89 10^6/uL (3.72-5.28); RED CELL DISTRIBUTION WIDTH 20.4 % (11.5-14.0); WHITE BLOOD COUNT 13.4 10^3/uL (4.0-10.5)
[2018-10-09 11:57] LABS: INTERNATIONAL RATION (INR) 1.01; PROTHROMBIN TIME 13.8 SEC (11.4-15.4)
[2018-10-09 11:58] LABS: PARTIAL THROMBOPLASTIN TIME 35.9 SEC (23.5-35.8)
[2018-10-09 12:13] LABS: BLOOD UREA NITROGEN 12 mg/dL (7-20)
--- NOTE | 2018-10-09 15:00 | RADIOLOGY REPORT (SQ) ---
EXAM DESCRIPTION: U/S ABD PARACENTESIS COMPLETED DATE/TIME: 10/09/2018 2:17 pm REASON FOR STUDY: ASCITES R18.8 OTHER ASCITES COMPARISON: None. LIMITATIONS: None. PROCEDURE: Procedure, risks, benefit, and alternative explained to patient who then gave written con sent. The right lower abdominal wall marked using ultrasound guidance. A time-out was called for co rrect marking verification. Abdomen prepped and draped using sterile technique. Local anesthesia ach ieved using 10 ml of 1% lidocaine injection. A 6fr [id number] set was introduced into the perit pedraza cavity. Fluid was drained. The catheter was removed and entry site was covered with sterile b andage. No immediate complications noted. Images acquired during the procedure were stored on PACS. FINDINGS: ENTRY SITE: Right lower quadrant. FLUID VOLUME: 3700 mL. FLUID ANALYSIS: Clear straw-colored. OTHER: Fluid sent to the lab for testing. IMPRESSION: SUCCESSFUL ULTRASOUND GUIDED PARACENTESIS. COMMENT: Patient medication list reviewed:Yes- Quality ID# [id number]:Eligible professional attests to docu menting in the medical record they obtained, updated, or reviewed the patient's current medications. TECHNICAL DOCUMENTATION: JOB ID: [id number] [employer]- All Rights Reserved Reading location - IP/workstation name: [email or web address]
[2018-10-09 15:35] LABS: FLUID APPEARANCE SLIGHTLY HAZY; FLUID COLOR LIGHT YELLOW; FLUID SOURCE ASCITES; FLUID TYPE PERITONEAL; FLUID VISCOSITY LIQUID
[2018-10-09 19:47] VITALS: BP 158/79
== END 2018-10-09 15:10 | disposition home or self-care (01) ==
LOC: RAD 10:57
PROVIDERS: ATTEND Internal Medicine
DX: R18.8 Other ascites (principal); C56.9 Malignant neoplasm of unspecified ovary; F17.210 Nicotine dependence, cigarettes, uncomplicated; I10 Essential (primary) hypertension; Z79.899 Other long term (current) drug therapy
CPT/HCPCS: 36415; 49083; 82565; 84520; 85027; 85610; 85730; 87070; 87075; 87205; 88305; 88313; 88341; 88342; 89050